=== PATIENT | female | born 1995 | race African-American/Black ===

== ENCOUNTER 2018-02-12 19:17 | Emergency (ER) | payer MEDICAID ==
[~2018-02-12] VITALS: Ht 167.6 cm; Wt 81.7 kg
[~2018-02-12 19:17] MED LIST: DEPAKOTE 250MG250 M1 PO; HYDROCODONE-AP1 EAC6 PO; IBUPROFEN 600600 M1 PO; LIDOCAINE VISC100 M1 SWISH&SPIT; NORTRIPTYLINE H25 M3 PO; PENICILLIN V P500 MG PO; PROPRANOLOL 1010 M1 PO; VENLAFAXIN75 MG/1 T2 PO; VISTARIL 25 MG25 M1 PO; XANAX 0.5 MG0.5 MG PO
[2018-02-12] MEDS ORDERED: TOPAMAX 100 MG100 MG PO (19:44)
[2018-02-12] MEDS ORDERED: ZOLOFT25 MG PO (19:45)
[2018-02-12] MEDS ORDERED: BUSPIRONE HCL10 MG PO (19:45)
[2018-02-12] MEDS ORDERED: TRAMADOL 50 MG50 MG PO (20:06)
[2018-02-12 20:20] VITALS: BP 149/89
== END 2018-02-12 20:22 | disposition home or self-care (01) ==
LOC: M.ERS 19:17
DX: S93.491A Sprain of other ligament of right ankle, initial encounter (principal); F41.9 Anxiety disorder, unspecified; X50.1XXA Overexertion from prolonged static or awkward postures, initial encounter; Y93.89 Activity, other specified; Y92.89 Other specified places as the place of occurrence of the external cause; Y99.8 Other external cause status

== ENCOUNTER 2019-04-04 11:49 | Emergency (ER) | payer MEDICAID ==
[~2019-04-04] VITALS: Ht 162.6 cm; Wt 65.8 kg
[~2019-04-04 11:49] MED LIST changes: +BUSPIRONE HCL10 MG PO; +TOPAMAX 100 MG100 MG PO; +TRAMADOL 50 MG50 MG PO; +ZOLOFT25 MG PO
[2019-04-04 11:54] VITALS: BP 130/78
[2019-04-04] MEDS ORDERED: ADDERALL 10 MG10 MG PO (11:59)
[2019-04-04] MEDS ORDERED: AMOXICILLIN 50500 MG PO (12:45)
[2019-04-04] MEDS ORDERED: CENTANY30 GM TOP (12:45)
== END 2019-04-04 12:45 | disposition home or self-care (01) ==
LOC: M.ERS 11:49
DX: H66.92 Otitis media, unspecified, left ear (principal); L98.8 Other specified disorders of the skin and subcutaneous tissue; F41.9 Anxiety disorder, unspecified